=== PATIENT | female | born 1990 | race Caucasian/White ===

== ENCOUNTER → 2019-12-14 | Outpatient (REF) | payer OTHER | LOC: M SFHCLERA 12:39 | PROVIDERS: ATTEND Physician Assistant | DX: J02.9 Acute pharyngitis, unspecified (principal) ==

== ENCOUNTER 2021-02-27 09:30 | Day surgery (SDC) | payer OTHER ==
[~2021-02-27] VITALS: Ht 157.5 cm; Wt 56.9 kg
[~2021-02-27 09:30] MED LIST: ACETAMINOPHEN 650 MG SUPP PR ONE; ADDE15CA3 PO; KEPP10002 PO; KEPP1TAB2 PO; LR 1,000 ML IV ONE; NS 1,000 ML IV SCH; NUVAMIS2 VA
[2021-02-27 10:20] LABS: HEMATOCRIT 37.8 % (36.0-47.0); MEAN CORPUSCULAR HEMOGLOBIN 31.6 pg (27.0-33.0); MEAN CORPUSCULAR HGB CONC 34.4 g/dl (32.0-36.5); PLATELET COUNT, AUTOMATED 332 10^3/uL (150-450); RED BLOOD COUNT 4.11 10^6/uL (4.00-5.40); WHITE BLOOD COUNT 6.8 10^3/uL (4.0-10.0)
[2021-02-27 10:54] LABS: BLOOD UREA NITROGEN 12 MG/DL (7-18); CALCIUM LEVEL 9.2 MG/DL (8.5-10.1); CARBON DIOXIDE LEVEL 26 MEQ/L (21-32); CHLORIDE LEVEL 108 MEQ/L (98-107); CREATININE FOR GFR 0.76 MG/DL (0.55-1.30); GLOMERULAR FILTRATION RATE > 60.0 (>60); GLUCOSE, FASTING 90 MG/DL (70-100); HCG, SERUM QUANTITATIVE < 1.0 MIU/ML; POTASSIUM SERUM 4.2 MEQ/L (3.5-5.1); SODIUM LEVEL 140 MEQ/L (136-145)
[2021-02-27] MEDS ORDERED: ROCURONIUM BROMIDE 50 MG/5 ML VIAL As Ordered ONE (12:44)
[2021-02-27] MEDS ORDERED: LIDOCAINE 2% 100MG/5ML SDV (FOR ANES.) As Ordered ONE (12:44)
[2021-02-27] MEDS ORDERED: propofoL 200 MG/20 ML VIAL As Ordered ONE (12:44)
[2021-02-27] MEDS ORDERED: MIDAZOLAM INJ 2MG/2ML VIAL (J2250 PER 1MG) As Ordered ONE (12:45)
[2021-02-27] MEDS ORDERED: fentaNYL 100 MCG/2 ML INJECTION (J3010) As Ordered ONE ×2 (12:45→14:44)
[2021-02-27] MEDS ORDERED: BUPIVACAINE HCL 0.5% 10ML VIAL As Ordered ONE (12:48)
[2021-02-27] MEDS ORDERED: ACETAMINOPHEN 650 MG SUPP As Ordered ONE (12:49)
[2021-02-27] MEDS ORDERED: dexameTHASONE 4 MG/ML 1ML VIAL (J1100 PER 1MG) As Ordered ONE (13:34)
[2021-02-27] MEDS ORDERED: ONDANSETRON 4MG/2ML VIAL As Ordered ONE (14:09)
[2021-02-27] MEDS ORDERED: KETOROLAC 60MG 2ML VIAL As Ordered ONE (14:09)
[2021-02-27] MEDS ORDERED: SUGAMMADEX SODIUM 500 MG/5 ML VIAL (BRIDION) As Ordered ONE (14:15)
[2021-02-27] MEDS ORDERED: LR 1,000 ML IV SCH (14:40)
[2021-02-27] MEDS ORDERED: oxyCODONE 5MG TAB PO PRN (14:40)
[2021-02-27] MEDS ORDERED: ONDANSETRON 4MG/2ML VIAL IV PRN (14:40)
[2021-02-27] MEDS ORDERED: fentaNYL 100 MCG/2 ML INJECTION (J3010) IV PRN (14:40)
[2021-02-27] MEDS ORDERED: METOCLOPRAMIDE INJ 10MG/2ML VIAL (J2765 PER 1) IV PRN (14:40)
[2021-02-27 15:28] VITALS: BP 116/68
--- NOTE | 2021-03-11 19:05 | RO ---
OPERATIVE NOTE DATE OF OPERATION: 02/27/2021 PREOPERATIVE DIAGNOSIS: Satisfied parity. POSTOPERATIVE DIAGNOSIS: Satisfied parity. OPERATION PROPOSED: Operative laparoscopy, bilateral salpingectomy. OPERATION PERFORMED: Operative laparoscopy, bilateral salpingectomy, removal of NuvaRing and Pap smear. SURGEON: Yomi Larios MD PIT SHOVELER: Kurt Broderick DO for retraction, extraction and visualization. ANESTHESIA: DESCRIPTION OF PROCEDURE: After adequate timeout, prepped and draped in the lithotomy position, a weighted speculum in the vagina, a NuvaRing was found and was removed and sent back with the patient and a Pap smear was performed and sent off to pathology under separate cover. Reprepping and draping. Acetaminophen suppository 1300 mg per rectum. Heard catheter in the bladder draining clear urine. A uterine elevator was placed in the endocervical canal, reprepping and draping. A small subumbilical incision was made. Veress needle was applied, 3.6 liters of CO2 to flow rate of 14 to a pressure of 15, direct entry into the abdomen, no evidence of perforation, hemorrhage or bleeding. Panoramic review, right upper quadrant was normal, gallbladder array was normal, right round ligament was normal, left round ligament was normal. Both ovaries were normal to the fimbriated end. 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 This was collapsed and was taken out when we took out the tube. The appendiceal area appeared to be normal. The uterus was midline, anteverted, anteflexed. The anterior aspect of the bladder was clear. The posterior cul-de-sac showed significant pelvic congestion syndrome with large varicosities especially on the right side. A 3 mm port on the right side, 5 mm on the left side. Using the LigaSure, the right tube was excised off and was brought out through the port on that side and was sent off to pathology under separate cover. On the opposite side, a similar procedure was performed and the tube and the collapsed hydatid were taken out through the port and sent off to pathology under separate cover. There were some filmy adhesions but were pushed aside although they were insignificant to the procedure. With instrument and pad count correct, we reviewed for active bleeding. There was no active bleeding. The uterus was placed in anatomical position. The abdomen was deflated to zero pressure, no evidence of active bleeding. The three ports were removed and subcuticular stitches were placed, Marcaine 0.25% 2 mL to each site. Steri-Strips were used. The Heard catheter was removed. The uterine elevator was removed and the patient was sent to recovery in good condition. No requirement of antibiotics. We will associate counsel the patient to reinsert the NuvaRing until its completion of cycle so there is no increased bleeding and the patient will have a followup appointment for a discussion of surgery. [place] [place] [facility]
== END 2021-02-27 15:50 | disposition home or self-care (01) ==
LOC: M SDC 09:30
PROVIDERS: ATTEND Obstetrics & Gynecology
DX: Z30.2 Encounter for sterilization (principal); Z12.4 Encounter for screening for malignant neoplasm of cervix; N94.89 Other specified conditions associated with female genital organs and menstrual cycle; G40.909 Epilepsy, unspecified, not intractable, without status epilepticus; Z79.899 Other long term (current) drug therapy; Z88.5 Allergy status to narcotic agent
CPT/HCPCS: 36415; 58661; 80048; 84702; 85027; 88302; G0123; J1100; J1885; J2250; J2405; J3010